=== PATIENT | female | born 1995 | race Caucasian/White ===

== ENCOUNTER 2020-11-16 22:08 | Emergency (ER) | payer MEDICAID ==
[~2020-11-16] VITALS: Ht 165.1 cm; Wt 81.6 kg
[2020-11-16 22:20] VITALS: BP 134/80
== END 2020-11-17 01:20 | disposition left against medical advice (07) ==
LOC: MED 22:08
DX: R51.9 Headache, unspecified (principal); Z53.21 Procedure and treatment not carried out due to patient leaving prior to being seen by health care provider
CPT/HCPCS: 99281; 99291

== ENCOUNTER 2022-06-21 20:28 | Emergency (ER) | payer MEDICAID ==
[~2022-06-21] VITALS: Ht 167.6 cm; Wt 62.6 kg
[2022-06-21 20:29] VITALS: BP 145/81
--- NOTE | 2022-06-21 20:34 | NUR ---
PT BIBA BLS TAKEN TO BED 6 Addendum: 06/21/22 at 2039 by STEVE PT IN ER BED 7
[2022-06-21] MEDS ORDERED: LIDOCAINE 1% 500 MG/ 50 ML VIAL INJ ONE (21:25)
[2022-06-21] MEDS ORDERED: LIDOCAINE MPF 1% 10 ML ONE (21:28)
--- NOTE | 2022-06-21 21:52 | NUR ---
Dr. Kelly examining patient.
[2022-06-21] MEDS ORDERED: BACITRACIN OINT 500 UNITS/GM PKT TP ONE (22:05)
[2022-06-21] MEDS ORDERED: BACTO TP (22:07)
[2022-06-21] MEDS ORDERED: IBUP-1842 PO (22:08)
[2022-06-21] MEDS ORDERED: ACETAMINOPHEN EXTRA STRENGTH 500 MG TAB PO ONE (22:10)
[2022-06-21 22:34] VITALS: BP 111/75
== END 2022-06-21 22:35 | disposition home or self-care (01) ==
LOC: MED 20:28
DX: S61.511A Laceration without foreign body of right wrist, initial encounter (principal); Z79.899 Other long term (current) drug therapy; W45.8XXA Other foreign body or object entering through skin, initial encounter; Y93.G1 Activity, food preparation and clean up; Y92.89 Other specified places as the place of occurrence of the external cause; Y99.8 Other external cause status
CPT/HCPCS: 12002; 99283; J2001

== ENCOUNTER 2022-06-30 10:22 | Emergency (ER) | payer MEDICAID ==
[~2022-06-30] VITALS: Ht 167.6 cm; Wt 61.2 kg
[~2022-06-30 10:22] MED LIST: BACTO TP; IBUP-1842 PO
[2022-06-30 10:29] VITALS: BP 139/88
--- NOTE | 2022-06-30 10:45 | NUR ---
steri strip applied to r anterior wrist
--- NOTE | 2022-06-30 10:50 | NUR ---
Patient discharged with v/s stable. Written and verbal after care instructions given and explained. Patient verbalized understanding. Ambulatory with steady gait. All questions addressed prior to discharge. Advised to follow up with PMD.
== END 2022-06-30 10:50 | disposition home or self-care (01) ==
LOC: MED 10:22
DX: S61.511D Laceration without foreign body of right wrist, subsequent encounter (principal); Z48.02 Encounter for removal of sutures; Z79.1 Long term (current) use of non-steroidal anti-inflammatories (NSAID); Z79.2 Long term (current) use of antibiotics; X58.XXXD Exposure to other specified factors, subsequent encounter
CPT/HCPCS: 99281